=== PATIENT | male | born 1980 | race African-American/Black ===

== ENCOUNTER 2016-09-22 16:58 | Emergency (ER) | payer OTHER ==
[~2016-09-22] VITALS: Ht 180.3 cm; Wt 90.7 kg
[2016-09-22 17:10] VITALS: BP 155/99
[2016-09-22] MEDS ORDERED: KEFLEX500 MG PO (18:19)
== END 2016-09-22 18:21 | disposition home or self-care (01) ==
LOC: ER 16:58
DX: L03.011 Cellulitis of right finger (principal); F10.99 Alcohol use, unspecified with unspecified alcohol-induced disorder; Z88.0 Allergy status to penicillin

== ENCOUNTER 2018-07-03 19:04 | Emergency (ER) | payer OTHER ==
[~2018-07-03] VITALS: Ht 180.3 cm; Wt 81.7 kg
[~2018-07-03 19:04] MED LIST: KEFLEX500 MG PO
[2018-07-03 19:14] LABS: URINE BILIRUBIN NEGATIVE (Negative); URINE BLOOD 3+ (Negative); URINE CLARITY CLOUDY; URINE COLOR RED; URINE GLUCOSE-RANDOM* NEGATIVE (Negative); URINE KETONES TRACE (Negative); URINE LEUKOCYTES-REFLEX TRACE (Negative); URINE NITRITE-REFLEX POSITIVE (Negative); URINE PROTEIN (DIPSTICK) 1+ (Negative); URINE SPECIFIC GRAVITY 1.025 (1.005-1.035)
[2018-07-03 19:21] LABS: CASTS None Seen /LPF (None Seen); CRYSTALS None Seen /LPF (None Seen); SQUAMOUS None Seen /LPF (0-3); URINE RBC >20 Many /HPF (0-2); URINE WBC-REFLEX None Seen /HPF (0-5)
[2018-07-03 19:22] LABS: BACTERIA-REFLEX 1-9 Few /HPF (None Seen)
[2018-07-03] MEDS ORDERED: BACTRIM DS TAB1 EACH PO (21:47)
[2018-07-03 23:00] VITALS: BP 155/92
== END 2018-07-03 23:15 | disposition home or self-care (01) ==
LOC: ER 19:04
PROVIDERS: Nurse Practitioner
DX: R30.0 Dysuria (principal); Z88.0 Allergy status to penicillin